=== PATIENT | male | born 1940 | race Caucasian/White ===

== ENCOUNTER 2016-09-26 09:16 | Emergency (ER) | payer MEDICARE, SELFPAY | END 2016-09-26 09:40 | disposition home or self-care (01) | LOC: ER 09:16 | DX: J32.9 Chronic sinusitis, unspecified (principal); R05 Cough; J02.9 Acute pharyngitis, unspecified; Z79.899 Other long term (current) drug therapy | CPT/HCPCS: 99282; 99283 ==

== ENCOUNTER 2016-10-13 11:09 | Emergency (ER) | payer MEDICARE, SELFPAY | END 2016-10-13 14:46 | disposition home or self-care (01) | LOC: ER 11:09 | DX: J06.9 Acute upper respiratory infection, unspecified (principal); R05 Cough; I10 Essential (primary) hypertension; Z85.820 Personal history of malignant melanoma of skin; Z79.899 Other long term (current) drug therapy | CPT/HCPCS: 71020; 99283; 99283-25 ==